=== PATIENT | male | born 1950 | race Caucasian/White ===

== ENCOUNTER → 2018-08-31 12:55 | Outpatient (CLI) | payer MEDICARE, OTHER, SELFPAY ==
--- NOTE | 2018-08-31 | DI.MRI.S_ITS ---
PROCEDURE: MR LUMBAR SPINE WO CON INDICATIONS: LUMBAR SPONDYLOSIS TECHNIQUE: Noncontrast sagittal T1 spin echo and T2 fast echo, sagittal STIR, axial T1 and T2 fast spin echo through the lumbar spine. In cases with scoliosis, additional coronal T2 fast spin echo may be performed. COMPARISON: None. FINDINGS: Image quality: Excellent. Alignment and Curvature: There is normal bony alignment. Bone Marrow: Scattered endplate degenerative signal changes. No acute vertebral body compression fractures. Spinal Cord: Conus medullaris terminates at the L1 level. Visualized cord demonstrates normal signal and size. Paraspinous Soft Tissues: Presumed T2 hyperintense left renal and hepatic cysts although these are technically nonspecific. L1-L2: Bilateral facet arthropathy. No central canal or lateral recess narrowing. Mild left and moderate right foraminal narrowing. L2-L3: Posterior annular fissure and broad-based posterior disc bulge with bilateral facet arthropathy. No definite central canal narrowing. Minimal partial effacement of both lateral recesses with symmetric involvement. Mild right and moderate left foraminal narrowing. L3-L4: Posterior annular fissure and broad-based posterior disc bulge. Bilateral facet arthropathy. Mild central canal narrowing which is in part due to dorsal epidural lipomatosis. Partial effacement of both lateral recesses although symmetric involvement. Moderate left and mild right foraminal narrowing. L4-L5: Broad-based posterior disc bulge and bilateral facet arthropathy. Minimal central canal narrowing. There is partial effacement of both lateral recesses, potentially right slightly greater than left. Moderate left and right foraminal narrowing. L5-S1: Broad-based posterior disc bulge and bilateral facet arthropathy. Minimal central canal narrowing. Mild partial effacement of both lateral recesses. Mild left and moderate right foraminal narrowing. IMPRESSION: No high-grade canal stenosis. Mild L3-L4 canal narrowing Multilevel mild/moderate bilateral foraminal stenoses at L1-L2 (right greater than left), L2-L3 (left greater than right), L3-L4 (left greater than right), L4-L5 (bilateral), L5-S1 (right greater than left). Bilateral subarticular narrowing is also present primarily at L3-L4 and L4-L5 however this is largely bilaterally symmetric (minimally right greater than left at L4-L5) Dictated by: Jose Elias Moreau M.D. on 08/31/2018 at 13:29 Approved by: Jose Elias Moreau M.D. on 08/31/2018 at 13:37
== END ==
PROVIDERS: PCP Family Medicine Geriatric Medicine; Visit Provider Physical Medicine & Rehabilitation
DX: M47.816 Spondylosis without myelopathy or radiculopathy, lumbar region (principal); M47.817 Spondylosis without myelopathy or radiculopathy, lumbosacral region; M48.061 Spinal stenosis, lumbar region without neurogenic claudication; M48.07 Spinal stenosis, lumbosacral region
CPT/HCPCS: 72148